=== PATIENT | female | born 1935 | race Caucasian/White ===

== ENCOUNTER 2018-10-03 13:32 | Emergency (ER) | payer OTHER, BC ==
[2018-10-03 13:45] VITALS: BP 154/78; PULSE 75; TEMP 97.8; BMI 19.3
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
== END 2018-10-03 14:30 | disposition home or self-care (01) ==
LOC: JERFT 13:32
DX: Z04.1 Encounter for examination and observation following transport accident (principal); V44.0XXA Car driver injured in collision with heavy transport vehicle or bus in nontraffic accident, initial encounter; Y93.89 Activity, other specified; Y92.481 Parking lot as the place of occurrence of the external cause; I10 Essential (primary) hypertension; E07.9 Disorder of thyroid, unspecified; Z85.07 Personal history of malignant neoplasm of pancreas
CPT/HCPCS: 99281-25

== ENCOUNTER 2018-10-03 14:56 | Emergency (ER) | payer OTHER, BC ==
[2018-10-03 15:13] VITALS: BMI 19.3
[2018-10-03 15:49] VITALS: BP 143/76; PULSE 67; TEMP 97.9
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
== END 2018-10-03 16:58 | disposition home or self-care (01) ==
LOC: JER 14:56
DX: Z46.82 Encounter for fitting and adjustment of non-vascular catheter (principal); Z85.07 Personal history of malignant neoplasm of pancreas
CPT/HCPCS: 99281-25